=== PATIENT | female | born 2000 | race Caucasian/White ===

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

== ENCOUNTER 2018-06-18 17:34 | Emergency (ER) | payer BC ==
[~2018-06-18] VITALS: Wt 82.7 kg
[~2018-06-18 17:34] MED LIST: ACET325T33 PO; AMOX500C2 PO
[2018-06-18 17:47] VITALS: BP 140/78; PULSE 77; RESP 18
[2018-06-18] MEDS ORDERED: TRIA15CR55 TOP (18:38)
[2018-06-18] MEDS ORDERED: PRED20TA PO (18:38)
[2018-06-18] MEDS ORDERED: BEN25 PO (18:38)
[2018-06-18] MEDS ORDERED: CEPH-443 PO (18:38)
--- NOTE | 2018-06-18 18:41 | ERD ---
ER Documentation Chief Complaint Chief Complaint possible bite ( left ankle) HPI 18-year-old female was bitten by some insects on the left ankle 3 days ago while outside at a green party. She said worsening redness over the left ankle. Denies fevers, vomiting, shortness of breath. ROS All systems reviewed and are negative except as per history of present illness. Medications Home Meds Active Scripts Triamcinolone Acetonide (Triamcinolone Acetonide) 0.1% - 15 Gm Cream.gm., 1 APPLIC TOP BID for 7 Days, #1 TUB Prov:ERI HARRISON MD 06/18/18 Prednisone* (Prednisone*) 20 Mg Tab, 40 MG PO DAILY for 4 Days, TAB Start June 19, 2018 Prov:ERI HARRISON MD 06/18/18 Diphenhydramine Hcl* (Benadryl*) 25 Mg Cap, 25 MG PO Q6, #15 CAP Prov:ERI HARRISON MD 06/18/18 Cephalexin* (Keflex*) 500 Mg Capsule, 500 MG PO QID for 7 Days, CAP Prov:REI HARRISON MD 06/18/18 Acetaminophen* (Tylenol*) 325 Mg Tablet, 2 TAB PO Q6 PRN for PAIN AND OR E LEVATED TEMP, #20 TAB Prov:CLAU JIMÉNEZ PA-C 06/27/16 Amoxicillin* (Amoxicillin*) 500 Mg Cap, 500 MG PO BID for 10 Days, #20 CAP Prov:CLAU JIMÉNEZ PA-C 06/27/16 Allergies Allergies: Coded Allergies: No Known Drug Allergies (Verified Allergy, Unknown, 06/18/18) PMhx/Soc Medical and Surgical Hx: pt denies Medical Hx, pt denies Surgical Hx Hx Alcohol Use: No Hx Substance Use: No Hx Tobacco Use: No FmHx Family History: No diabetes, No coronary disease, No other Physical Exam Vitals Vital Signs Date Temp Pulse Resp B/P (MAP) Pulse Ox O2 O2 Flow FiO2 Time Delivery Rate 06/18/18 97.7 77 18 140/78 97 17:47 (98) Physical Exam Const: No acute distress Head: Atraumatic Eyes: Normal Conjunctiva ENT: Normal External Ears, Nose and Mouth. Neck: Full range of motion. No meningismus. Resp: Clear to auscultation bilaterally Cardio: Regular rate and rhythm, no murmurs Abd: Soft, non tender, non distended. Normal bowel sounds Skin: No petechiae or rashes. Some redness approximately 4 cm in the left lateral ankle. There is few areas of scabbed papules. There is no streaking, discharge, restricted range of motion weakness. Back: No midline or flank tenderness Ext: No cyanosis, or edema Neur: Awake and alert Psych: Normal Mood and Affect Results 24 hrs Current Medications Medications Dose Sig/Cristina Start Time Status Last (Trade) Ordered Route PRN Stop Time Admin Dose Reason Admin Cephalexin 500 mg ONCE ONCE 06/18/18 (Keflex) PO 19:00 06/18/18 19:01 Prednisone 60 mg ONCE ONCE 06/18/18 (Prednisone) PO 19:00 06/18/18 19:01 25 mg ONCE ONCE 06/18/18 Diphenhydrami PO 19:00 ne HCl 06/18/18 19:01 (Benadryl) Procedures/MDM 18-year-old female presents with a history of insect bites on her left ankle with signs of local reaction versus early infection. No signs of ischemia, deficits, sepsis, anaphylaxis, additional complications.. She will be treated empirically with Keflex, short course prednisone, Benadryl, triamcinolone, recommendations for ice, 2-day recheck for worsening redness, fevers, new worse darian symptoms. The patient was stable with no new complaints during the ER course. Clinically, there is no current evidence to suggest meningitis, sepsis, acute abdomen, pneumonia, stroke, acute coronary syndrome, pulmonary embolism, aortic dissection or any other emergent condition appearing to require further evaluation or hospitalization. Patient counseled regarding my diagnostic impression and care plan. Prior to discharge all questions answered. Pt agrees with treatment plan and understands strict return precautions. Pt is instructed to follow up with primary care provider within 24-48 hours. Precautionary instructions provided including instructions to return to the ER if not improving or for any worsening or changing symptoms or concerns. Departure Diagnosis: Primary Impression: Infected bite wound Condition: Stable Patient Instructions: Insect Sting/Bite, Infected Additional Instructions: Recheck in 2 days for worsening redness, fevers, new worsening symptoms. We will treat for infection but may be local reaction to insect bite. ERI HARRISON MD Jun 18, 2018 18:41
[2018-06-18] MEDS ORDERED: CEPHALEXIN 500 MG CAP PO ONE (19:00)
[2018-06-18] MEDS ORDERED: predniSONE 20 MG TAB PO ONE (19:00)
[2018-06-18] MEDS ORDERED: DIPHENHYDRAMINE 25 MG CAP PO ONE (19:00)
== END 2018-06-18 19:33 | disposition home or self-care (01) ==
LOC: FTE 17:34
DX: S90.562A Insect bite (nonvenomous), left ankle, initial encounter (principal); L08.9 Local infection of the skin and subcutaneous tissue, unspecified; W57.XXXA Bitten or stung by nonvenomous insect and other nonvenomous arthropods, initial encounter; Y92.89 Other specified places as the place of occurrence of the external cause
CPT/HCPCS: J7512; Z7502; Z7610; 99283